=== PATIENT | female | born 1955 | race Caucasian/White ===

== ENCOUNTER 2025-02-23 22:12 | Emergency (ER) | payer MEDICARE, OTHER, SELFPAY ==
[2025-02-23 22:14] VITALS: BP 124/76
[2025-02-23 23:12] VITALS: BP 118/60
[2025-02-23 23:13] VITALS: BMI 28.4
--- NOTE | 2025-02-23 23:50 | ED.GENMED ---
History of Present Illness
General
Chief Complaint: Skin Problem
Source: patient and family
Exam Limitations: none
Time Seen by Provider: 02/23/25 23:40
Nursing documentation reviewed up to this point in time: agreed with
History of Present Illness
History of Present Illness:
70-year-old female presents emergency ferment complaining of bilateral lower leg redness and pain that started this morning. She is on Bactrim for UTI. She states she gets a rash every time she has a virus or infection.
Past History
Past History
ED Past Medical History: Hyperthyroidism and Other
ED Past Surgical History: Appendectomy and Orthopedic
Social History
Tobacco: Non-smoker
Alcohol: None
Personal:
Living: with family
Employment: Employed
Family History
Family History: Other
Review of Systems
Review of Systems
Allergies reviewed?: Yes
All Other Systems: Not applicable
Constitutional: Reports no symptoms
EENT: Reports no symptoms
Respiratory: Reports no symptoms
Cardiac: Reports no symptoms
ABD/GI: Reports no symptoms
: Reports dysuria
Musculoskeletal: Reports no symptoms
Skin: Reports rash
Neurological: Reports no symptoms
Endocrine: Reports no symptoms
Hematologic/Lymphatic: Reports no symptoms
Psychiatric: Reports no symptoms
Phy Exam
Physical Exam
Physical Exam:
Physical Exam
General: no apparent distress, not acutely ill
Neck: supple. no meningeal signs. normal posterior pharynx
Heart: s1/s2 regular rate and rhythm, no murmur. equal radial
pulses.
HEENT: Pupils equal round reactive to light, EOMI
Lungs: no acute respiratory distress. clear bilaterally
Abdomen: normal bowel sounds. not tender. no CVAT
Neuro: alert and oriented. no focal neurological deficits cranial nerves II through XII intact
Skin: Diffuse lenticular rash on trunk, macular rash on lower legs
Psychiatric: well kept. interactive and cooperative
Extremities: no edema. no calf tenderness. negative homans. good distal pulses
Course
Orders/Labs/Results
Orders:
Orders
02/23/25 23:47
Cardiac Monitoring- Treatment ONCE
IV Insert/Care/Rem.- Treatment PRN
Complete Blood Count/With Diff Urgent
Comprehensive Metabolic Panel Urgent
Magnesium Urgent
PTT Urgent
Prothrombin Time Urgent
02/23/25 23:48
Urinalysis Reflex To Culture Urgent
Date Specimen was Collected: 02/24/25
Time Specimen was Collected: 01:11
02/24/25 01:12
Urine Microscopic Reflex Cult Urgent
Urine Culture Urgent
MARJ Source: U
Specimen Description:
Date Specimen was Collected: 02/24/25
Time Specimen was Collected: 01:11
02/24/25 01:55
Cephalexin Monohydrate [Keflex] 500 mg PO NOW STA
Abnormal Lab Results
02/24/25 02/24/25
01:09 01:12
RBC 3.73 L 10^6/uL
(4.20-5.40)
Hgb 11.6 L g/dL
(12.0-16.0)
Hct 34.1 L %
(37.0-47.0)
MCH 31.1 H pg
(27.0-31.0)
Lymphocytes % 17.5 L %
(20.5-51.1)
Chloride 111 H mmol/L
(98-107)
Glucose 107 H mg/dl
(70-99)
Total Protein 6.1 L g/dl
(6.3-8.2)
Leukocyte Esterase Rfl 1+ A
(Negative)
Urine WBC (Reflex) 30-40 A /HPF
(0-5)
Urine Bacteria (Reflex) Moderate A
(Negative)
02/24/25 01:09
02/24/25 01:09
Vital Signs
Initial and Last Documented VS:
Initial Vital Signs
Temp Pulse Resp BP Pulse Ox
98.4 F 78 18 124/76 98
02/23/25 22:14 02/23/25 22:14 02/23/25 22:14 02/23/25 22:14 02/23/25 22:14
Last Documented Vital Signs
Temp Pulse Resp BP Pulse Ox
98.4 F 74 13 120/50 94
02/23/25 22:14 02/24/25 01:30 02/24/25 01:30 02/24/25 01:27 02/24/25 01:30
MDM/Problems Addressed
Differential Diagnosis Includes:
cellulitis, UTI
MDM/Problems Addressed:
70 yo female with UTI, drug rash, cellulitis. No signs TEN.
*Pulse Oximetry
Patient hypoxic: no (94% RA)
*Critical Care Note
Total Time (30-74mins, 75-104mins- exclusive of procedures): Not Applicable
Patient Management
Social determinants of health affecting care: Living situation and Strong social support
Escalation/DeEscalation of care consider admission/obs:
admit not indicated
ED Attending Note
-
Portions of this chart may have been created with voice recognition software.� Occasional wrong word or��sound alike� substitutions may have occurred due to the inherent limitations of voice recognition software.
Discharge Plan
Departure
Patient Disposition: Home (Routine Discharge)
Date of Disposition: 02/24/25
Time of Disposition: 01:55
Patient with high blood pressure during this ER visit?: No
Condition: Good
Discharge Problem:
Acute UTI, Cellulitis, Drug rash
Instructions: Urinary tract infections in adults, Skin Rash (DC), Cellulitis (Skin Infection), Adult (DC)
Prescriptions:
New
cephalexin 500 mg capsule
500 mg PO TID 7 Days Qty: 21 0RF
No Action
multivitamin [Daily Multiple] 1 EACH tablet
1 ea PO DAILY
calcium carbonate [calcium] 500 MG tablet
500 mg PO DAILY
levothyroxine 112 MCG tablet
112 mcg PO DAILY
dpgzspr-alwfupozuwgzp-yodfclfd 1 EACH tablet
1 ea PO PRN PRN (Reason: MORRISON)
cyclobenzaprine 10 MG tablet
10 mg PO TIDPRN PRN (Reason: Pain) Qty: 20 0RF
Referrals:
UNKNOWN - PT DOES,NOT KNOW [Family Provider]
Mingo Short MD [Consulting Staff, Dermatology] - Call in 1-3 days for appt
Activity Restrictions/Additional Instructions:
Follow-up primary care in 3 to 5 days. Return for any concerns.
Interventions
Interventions:
*Risk Screen - Suicide Last Done: 02/23/25 22:14
*General Assessment Last Done: 02/23/25 22:14
*Neglect/Abuse Screening Last Done: 02/23/25 22:14
*ED- Fall Risk Assessment Last Done: 02/23/25 22:14
*ED COVID-19 Vaccine History Last Done: 02/23/25 22:14
ED-Skin Assessment Last Done: 02/23/25 23:13
Discharge Date and Time
Print Language: SLOVENIAN
[2025-02-24 01:16] LABS: % Basophils 0.5 % (0-2); % Eosinophils 4.4 % (0-6); % Immature Granulocytes 0.3 % (0-0.5); % Lymphocytes 17.5 % (20.5-51.1); % Monocytes 8.5 % (1.7-9.3); % Neutrophils 68.8 % (42.2-75.2); Absolute Eosinophils 0.3 10^3/uL (0-0.7); Absolute Lymphocytes 1.3 10^3/uL (1.2-3.4); Absolute Monocytes 0.6 10^3/uL (0.1-0.6); Absolute Neutrophils 5.2 10^3/uL (1.4-6.5); Hematocrit 34.1 % (37.0-47.0); Hemoglobin 11.6 g/dL (12.0-16.0); Mean Corpuscular Hgb 31.1 pg (27.0-31.0); Mean Corpuscular Volume 91.4 fL (81.0-99.0); Mean Platelet Volume 9.5 fL (7.4-10.4); Nucleated Red Blood Cells % 0 %; Platelet Count 207 10^3/uL (130-400); Red Blood Cell Count 3.73 10^6/uL (4.20-5.40); Red Cell Dist. Width 13.7 % (11.5-14.5); White Blood Cell Count 7.6 10^3/uL (4.8-10.8)
[2025-02-24 01:26] LABS: INR 0.95
[2025-02-24 01:27] VITALS: BP 120/50
[2025-02-24 01:27] LABS: APTT 31.1 Sec (23.4-35.0)
[2025-02-24 01:29] LABS: ALT (SGPT) 27 U/L (0-35); AST (SGOT) 36 U/L (14-36); Albumin 3.9 g/dl (3.5-5.0); Alkaline Phosphatase 85 U/L (38-126); Blood Urea Nitrogen 13 mg/dl (7-17); Calcium 9.1 mg/dl (8.4-10.2); Carbon Dioxide 25 mmol/L (22-30); Chloride 111 mmol/L (98-107); Estimated Creatinine Clearance 67 ml/min; Glucose 107 mg/dl (70-99); Magnesium 1.9 mg/dl (1.6-2.3); Potassium 3.8 mmol/L (3.5-5.1); Sodium 141 mmol/L (135-145); Total Bilirubin 0.4 mg/dl (0.2-1.3); Total Protein 6.1 g/dl (6.3-8.2); eGFR > 60.00
[2025-02-24 01:29] LABS: Urine Albumin Negative (Neg - Trace); Urine Bilirubin Negative (Negative); Urine Character Cloudy (Clear); Urine Color Yellow; Urine Glucose Negative (Negative); Urine Ketone Negative (Negative); Urine Leukocyte 1+ (Negative); Urine Nitrite Negative (Negative); Urine Occult Blood Negative (Negative); Urine Specific Gravity 1.015 (<1.030); Urine Urobilinogen Negative (Neg - 1+)
[2025-02-24 01:49] LABS: Urine Red Blood Cell 0-2 /HPF (0-2); Urine Squamous Cell 0-2 /LPF (Few); Urine White Cell 30-40 /HPF (0-5)
[2025-02-24 01:50] LABS: Urine Bacteria Moderate (Negative)
[2025-02-24] MEDS: KEFLEX 500 MG PO (01:59)
[2025-02-24 02:00] VITALS: BP 112/55
[2025-02-24 02:17] VITALS: BP 112/55
== END 2025-02-24 02:10 | disposition home or self-care (01) ==
LOC: EMR 22:12
PROVIDERS: EMERGENCY PHYSICIAN Emergency Medicine
DX: N39.0 Urinary tract infection, site not specified (principal); L03.116 Cellulitis of left lower limb; L03.115 Cellulitis of right lower limb; L27.0 Generalized skin eruption due to drugs and medicaments taken internally
CPT/HCPCS: 99283; 80053; 81003; 81015; 83735; 85025; 85610; 85730; 87086

== ENCOUNTER → 2025-03-28 06:26 | Outpatient (REF) | payer MEDICARE, OTHER, SELFPAY | LOC: RAD 06:26 | PROVIDERS: ATTENDING PHYSICIAN Physician Assistant | DX: Z13.6 Encounter for screening for cardiovascular disorders (principal); Z82.49 Family history of ischemic heart disease and other diseases of the circulatory system | CPT/HCPCS: 76770 ==

== ENCOUNTER → 2025-04-10 12:51 | Outpatient (REF) | payer MEDICARE, OTHER, SELFPAY | LOC: WDC 12:51 | PROVIDERS: ATTENDING PHYSICIAN Physician Assistant | DX: Z12.31 Encounter for screening mammogram for malignant neoplasm of breast (principal) | CPT/HCPCS: 77063; 77067 ==

== ENCOUNTER → 2025-04-11 08:14 | Outpatient (REF) | payer MEDICARE, OTHER, SELFPAY | LOC: RCS 08:14 | PROVIDERS: ATTENDING PHYSICIAN Physician Assistant | DX: R07.2 Precordial pain (principal); R00.2 Palpitations | CPT/HCPCS: 93005; 93306 ==

== ENCOUNTER 2025-05-30 06:24 | Day surgery (SDC) | payer MEDICARE, OTHER, SELFPAY | END 2025-05-30 10:40 | disposition home or self-care (01) | LOC: GI 06:24 | PROVIDERS: ATTENDING PHYSICIAN Internal Medicine | DX: Z12.11 Encounter for screening for malignant neoplasm of colon (principal); K64.9 Unspecified hemorrhoids; K57.30 Diverticulosis of large intestine without perforation or abscess without bleeding; Z80.0 Family history of malignant neoplasm of digestive organs | CPT/HCPCS: G0105 ==